=== PATIENT | female | born 1960 | race Caucasian/White ===

== ENCOUNTER 2025-01-04 18:08 | Inpatient (IN) | payer MEDICAID ==
[~2025-01-04] VITALS: Ht 172.7 cm; Wt 85.7 kg
[2025-01-04 23:13] VITALS: BP 116/51; PULSE 66; RESP 20; TEMP 36.3; TEMP 36.3068; O2SAT 96
[2025-01-05] VITALS (7 sets, daily range): BP systolic 112–120; BP diastolic 51–69; PULSE 60–84; RESP 16–20; TEMP 35.8–36.6; O2SAT 96–98
[2025-01-05] MEDS ORDERED: CHOL2000 PO (00:04)
[2025-01-05] MEDS ORDERED: EMPA10TA PO (00:04)
[2025-01-05] MEDS ORDERED: MONT-39 PO (00:04)
[2025-01-05] MEDS ORDERED: METO-539 PO (00:05)
[2025-01-05] MEDS ORDERED: DEXTROSE 50% WATER 50ML SYRINGE IV PRN (02:30)
[2025-01-05] MEDS ORDERED: MIDODRINE HCL 5MG TABLET PO PRN (02:30)
[2025-01-05] MEDS: DEXT 5%/0.9% NACL 1,000 ML IV SCH (03:07)
[2025-01-05] MEDS: MEROPENEM 1G/100ML IV NR (04:05)
[2025-01-05] MEDS: BLOOD SUGAR DIAGNOSTIC STRIP TEST SCH (06:34)
[2025-01-05] MEDS: INSULIN LISPRO 100 UNITS/ML SUBCUT SCH (07:50)
[2025-01-05] MEDS: METHYLPREDNISOLONE SOD SUCC 40MG/ML (ACT-O-VIAL) IV SCH (09:15)
[2025-01-05] MEDS: FUROSEMIDE 40MG/4ML VIAL IVP SCH (09:15)
[2025-01-05] MEDS: CARVEDILOL 12.5MG TABLET PO SCH (09:15)
[2025-01-05] MEDS: PANTOPRAZOLE SODIUM 40 MG/VIAL IV SCH (12:49)
[2025-01-05] MEDS: ALBUTEROL (0.083%) 2.5MG/3ML NEB HHN SCH (15:11)
[2025-01-05 16:39] LABS: HEMATOCRIT. 27.2 % (36.0-48.0); HEMOGLOBIN. 8.5 g/dL (12.0-16.0); MEAN PLATELET VOLUME 9.8 fl (7.4-10.4); PLATELET 108 x1000/uL (130-400); RED BLOOD CELL COUNT 3.16 mill/uL (4.2-5.4); RED CELL DISTRIBUTION WIDTH 15.5 % (11.6-14.6)
[2025-01-05 17:22] LABS: UREA NITROGEN BLOOD 104.0 mg/dL (9-23)
[2025-01-05 17:23] LABS: CREATININE 6.0 mg/dL (0.6-1.0)
[2025-01-05] MEDS: SODIUM ZIRCONIUM CYCLOSILICATE 10GM/PACKET PO SCH (17:38)
[2025-01-05] MEDS: IPRATROPIUM/ALBUTEROL 0.5-3(2.5)MG/3ML NEB HHN SCH (20:56)
[2025-01-05 22:11] LABS: LYMPHOCYTES % MANUAL 6.0 % (20.0-60.0); MONOCYTES % MANUAL 7.0 % (2.0-8.0); NEUTROPHILS % MANUAL 87.0 % (45.0-75.0)
[2025-01-05 22:12] LABS: PLATELET ESTIMATE DECREASED
[2025-01-06] VITALS (16 sets, daily range): BP systolic 98–133; BP diastolic 48–58; PULSE 59–65; RESP 16–20; TEMP 35.9–37.4; O2SAT 95–99
[2025-01-06] MEDS: MEROPENEM 500MG/50ML 50 ML IV SCH (09:21)
[2025-01-06 10:24] LABS: HEMATOCRIT. 26.0 % (36.0-48.0); HEMOGLOBIN. 8.2 g/dL (12.0-16.0); MEAN PLATELET VOLUME 9.6 fl (7.4-10.4); PLATELET 118 x1000/uL (130-400); RED BLOOD CELL COUNT 3.02 mill/uL (4.2-5.4); RED CELL DISTRIBUTION WIDTH 15.6 % (11.6-14.6)
[2025-01-06 10:48] LABS: TRIGLYCERIDE 195.0 mg/dL (0-150)
[2025-01-06 10:49] LABS: LDL CHOLESTEROL 55.0 mg/dL (5-100)
[2025-01-06 10:51] LABS: CREATININE 7.0 mg/dL (0.6-1.0); UREA NITROGEN BLOOD 132.0 mg/dL (9-23)
[2025-01-06 10:54] LABS: T4 FREE 0.63 ng/dL (0.89-1.76)
[2025-01-06 14:22] LABS: BAND% 10.0 % (1.0-6.0); LYMPHOCYTES % MANUAL 6.0 % (20.0-60.0); MONOCYTES % MANUAL 3.0 % (2.0-8.0); NEUTROPHILS % MANUAL 81.0 % (45.0-75.0); PLATELET ESTIMATE DECREASED
[2025-01-06] MEDS: ENOXAPARIN 30MG/0.3ML SYR SUBCUT SCH (21:25)
[2025-01-07] VITALS (9 sets, daily range): BP systolic 98–122; BP diastolic 44–53; PULSE 60–68; RESP 18–20; TEMP 36.3–37.4; O2SAT 96–100
[2025-01-07 00:46] LABS: CREATINE KINASE MB FRACTION 1.1 ng/mL (0.5-3.6)
[2025-01-07 00:51] LABS: TROPONIN I HIGH SENSITIVITY 54 ng/L (3.0-34)
[2025-01-07] MEDS: ACETAMINOPHEN 325MG TABLET PO PRN (04:12)
[2025-01-07 08:33] LABS: CREATINE KINASE MB FRACTION 1.4 ng/mL (0.5-3.6)
[2025-01-07 08:49] LABS: TROPONIN I HIGH SENSITIVITY 58.0 ng/L (3.0-34)
[2025-01-08] VITALS (19 sets, daily range): BP systolic 100–133; BP diastolic 43–70; PULSE 63–89; RESP 16–20; TEMP 36.2–37; O2SAT 96–99
[2025-01-08] MEDS ORDERED: MELATONIN 3MG TABLET PO PRN (03:15)
[2025-01-08] MEDS: NITROGLYCERIN OINT 1GM/INCH UDPKT TD SCH (06:28)
[2025-01-08 13:00] LABS: MEAN PLATELET VOLUME 9.4 fl (7.4-10.4); PLATELET 136 x1000/uL (130-400); RED BLOOD CELL COUNT 2.04 mill/uL (4.2-5.4); RED CELL DISTRIBUTION WIDTH 15.6 % (11.6-14.6)
[2025-01-08 13:12] LABS: HEMATOCRIT. 17.9 % (36.0-48.0); HEMOGLOBIN. 5.6 g/dL (12.0-16.0)
[2025-01-08 13:22] LABS: ASPARTATE AMINOTRANSFERASE 27 IU/L (<34); BILIRUBIN TOTAL 0.5 mg/dL (0.1-1.0); PROTEIN TOTAL 5.1 g/dL (6.0-8.3)
[2025-01-08 13:23] LABS: CREATININE 7.4 mg/dL (0.6-1.0); UREA NITROGEN BLOOD > 150 mg/dL (9-23)
[2025-01-08 13:52] LABS: BAND% 7.0 % (1.0-6.0); LYMPHOCYTES % MANUAL 3.0 % (20.0-60.0); MONOCYTES % MANUAL 2.0 % (2.0-8.0); NEUTROPHILS % MANUAL 88.0 % (45.0-75.0); PLATELET ESTIMATE NORMAL
[2025-01-09] VITALS (17 sets, daily range): BP systolic 118–148; BP diastolic 52–89; PULSE 60–86; RESP 16–22; TEMP 36.2–37.2; O2SAT 96–99
[2025-01-10] VITALS (15 sets, daily range): BP systolic 104–130; BP diastolic 41–79; PULSE 10–91; RESP 18–20; TEMP 36.28068–36.9; O2SAT 96–100
[2025-01-10 08:07] LABS: HEMATOCRIT. 23.6 % (36.0-48.0); HEMOGLOBIN. 7.8 g/dL (12.0-16.0); MEAN PLATELET VOLUME 9.0 fl (7.4-10.4); PLATELET 130 x1000/uL (130-400); RED BLOOD CELL COUNT 2.74 mill/uL (4.2-5.4); RED CELL DISTRIBUTION WIDTH 15.1 % (11.6-14.6)
[2025-01-10 08:09] LABS: UREA NITROGEN BLOOD 97 mg/dL (9-23)
[2025-01-10 08:12] LABS: VITAMIN B12 SERUM 1600 pg/mL (211-911)
[2025-01-10 08:13] LABS: FOLIC ACID (FOLATE) SERUM 8.74 ng/mL (>5.38)
[2025-01-10 09:31] LABS: CREATININE 4.8 mg/dL (0.6-1.0)
[2025-01-10 14:29] LABS: BAND% 9.0 % (1.0-6.0); LYMPHOCYTES % MANUAL 1.0 % (20.0-60.0); MONOCYTES % MANUAL 9.0 % (2.0-8.0); NEUTROPHILS % MANUAL 81.0 % (45.0-75.0); PLATELET ESTIMATE NORMAL
[2025-01-11] VITALS: BP 139/56; PULSE 60; RESP 19; TEMP 36.4; O2SAT 98
[2025-01-11 04:00] VITALS: BP 131/56; PULSE 73; RESP 20; TEMP 36.7; O2SAT 98
[2025-01-11 06:46] LABS: CREATININE 3.8 mg/dL (0.6-1.0)
[2025-01-11 06:47] LABS: UREA NITROGEN BLOOD 66.0 mg/dL (9-23)
[2025-01-11 07:25] LABS: HEPATITIS A AB IGM NEGATIVE (Negative)
[2025-01-11 07:26] LABS: HEPATITIS B CORE AB IGM NEGATIVE (Negative); HEPATITIS C AB NON REACTIVE (Neg) (Negative)
[2025-01-11 08:56] VITALS: BP 127/55; PULSE 67; RESP 18; TEMP 36.5; O2SAT 98
[2025-01-11 12:00] VITALS: BP 127/55; PULSE 67; RESP 18; TEMP 36.5; O2SAT 98
[2025-01-11] MEDS ORDERED: NON FORMULARY MED XX SCH (12:30)
[2025-01-11] MEDS: IRON SUCROSE COMPLEX 100 MG/5 ML ML IV SCH (14:35)
[2025-01-11 16:00] VITALS: BP 120/55; PULSE 64; RESP 17; TEMP 37.1; O2SAT 100
[2025-01-11 20:00] VITALS: BP 130/60; PULSE 72; RESP 19; TEMP 36.4; O2SAT 97
[2025-01-11] MEDS: DEXT 5%/0.45% NACL 1000ML 1,000 ML IV SCH (20:35)
[2025-01-11] MEDS: PANTOPRAZOLE SODIUM 40 MG/VIAL IV SCH (20:59)
[2025-01-11] MEDS: GUAIFENESIN 200MG/10ML SUGAR FREE UDC PO PRN (22:40)
[2025-01-12] VITALS (8 sets, daily range): BP systolic 110–151; BP diastolic 52–66; PULSE 62–77; RESP 18–20; TEMP 36.1–36.9; O2SAT 94–100
[2025-01-12 08:04] LABS: CLARITY URINE CLEAR (CLEAR); COLOR URINE YELLOW (YELLOW); GLUCOSE URINE NEGATIVE (NEGATIVE); KETONES URINE NEGATIVE (NEGATIVE); LEUKOCYTE ESTERASE URINE 2+ (NEGATIVE); NITRITE URINE NEGATIVE (NEGATIVE); OCCULT BLOOD URINE 3+ (NEGATIVE); PH URINE 5.5 (4.5-8.0); PROTEIN URINE 1+ (NEGATIVE); SPECIFIC GRAVITY URINE 1.009 (1.005-1.030); UROBILINOGEN URINE 0.2 E.U./dL (0.2-1.0)
[2025-01-12 08:50] LABS: BACTERIA URINE 1+; RBC URINE TNTC /hpf (0-2); SQUAMOUS EPITHELIAL CELL URINE 1+ /lpf (RARE/1+); YEAST URINE 2+
[2025-01-12 08:51] LABS: HEMATOCRIT. 24.0 % (36.0-48.0); HEMOGLOBIN. 7.9 g/dL (12.0-16.0); MEAN PLATELET VOLUME 8.8 fl (7.4-10.4); PLATELET 164 x1000/uL (130-400); RED BLOOD CELL COUNT 2.78 mill/uL (4.2-5.4); RED CELL DISTRIBUTION WIDTH 14.9 % (11.6-14.6)
[2025-01-12 09:06] LABS: CREATININE 4.8 mg/dL (0.6-1.0)
[2025-01-12 09:07] LABS: UREA NITROGEN BLOOD 91.0 mg/dL (9-23)
[2025-01-12 09:12] LABS: COMPLEMENT C3 81 mg/dL (82-167); COMPLEMENT C4 23 mg/dL (12-38)
[2025-01-12 10:08] LABS: BAND% 9.0 % (1.0-6.0); LYMPHOCYTES % MANUAL 7.0 % (20.0-60.0); MONOCYTES % MANUAL 8.0 % (2.0-8.0); NEUTROPHILS % MANUAL 76.0 % (45.0-75.0); PLATELET ESTIMATE NORMAL
[2025-01-12 11:41] LABS: INR 1.0
[2025-01-12 13:08] LABS: ANTI-NUCLEAR ANTIBODIES DIRECT Positive (Negative)
[2025-01-12] MEDS ORDERED: DEXAMETHASONE 4MG/ML 1ML VIAL ONE (16:02)
[2025-01-12] MEDS ORDERED: ONDANSETRON HCL 4MG/2ML INJ ONE (16:02)
[2025-01-12] MEDS ORDERED: FENTANYL CITRATE/PF 50MCG/ML 2ML VIAL ONE (16:03)
[2025-01-12] MEDS ORDERED: PROPOFOL 200MG/20ML VIAL IV ONE (16:03)
[2025-01-12] MEDS ORDERED: IOHEXOL-300 100 ML BOTTLE ONE (17:19)
[2025-01-12] MEDS ORDERED: FAMOTIDINE 20MG/2ML VIAL IV ONE (18:28)
[2025-01-12] MEDS: SODIUM CHLORIDE 0.45% 1,000 ML IV SCH (20:11)
[2025-01-13] VITALS: BP 115/60; PULSE 63; RESP 18; TEMP 36.4; O2SAT 99
[2025-01-13 04:00] VITALS: BP 124/50; PULSE 69; RESP 18; TEMP 36.5; O2SAT 100
[2025-01-13 08:00] VITALS: BP 118/59; PULSE 75; RESP 18; TEMP 36.2; O2SAT 99
[2025-01-13 10:37] LABS: PLATELET 186 x1000/uL (130-400); RED BLOOD CELL COUNT 2.61 mill/uL (4.2-5.4); RED CELL DISTRIBUTION WIDTH 14.5 % (11.6-14.6)
[2025-01-13 10:51] LABS: CREATININE 4.4 mg/dL (0.6-1.0); UREA NITROGEN BLOOD 95.0 mg/dL (9-23)
[2025-01-13 12:00] VITALS: BP 129/54; PULSE 74; RESP 18; TEMP 36.6; O2SAT 99
[2025-01-13] MEDS: MICAFUNGIN 100 MG in SODIUM CHLORIDE 0.9% 100 ML IV SCH (14:36)
[2025-01-13 16:00] VITALS: BP 134/57; PULSE 66; RESP 18; TEMP 36.6; O2SAT 100
[2025-01-13 20:00] VITALS: BP 128/61; PULSE 72; RESP 18; TEMP 36.1; O2SAT 98
[2025-01-14] VITALS: BP 108/52; PULSE 75; RESP 19; TEMP 36; O2SAT 97
[2025-01-14 04:00] VITALS: BP 124/65; PULSE 80; RESP 19; TEMP 36.2; O2SAT 98
[2025-01-14 08:00] VITALS: BP 122/63; PULSE 79; RESP 17; TEMP 36.5; O2SAT 97
[2025-01-14 10:58] LABS: CREATININE 4.3 mg/dL (0.6-1.0); UREA NITROGEN BLOOD 100.0 mg/dL (9-23)
[2025-01-14 12:00] VITALS: BP 132/57; PULSE 82; RESP 18; TEMP 36.4; O2SAT 99
[2025-01-14 16:00] VITALS: BP 131/59; PULSE 67; RESP 16; RESP 20; TEMP 36.3; O2SAT 100
[2025-01-14 19:09] LABS: ANTI-MYELOPEROXIDASE AB > 8.0 units (0.0-0.9); ANTI-PROTEINASE 3 ABS < 0.2 units (0.0-0.9)
[2025-01-14 20:00] VITALS: BP 132/58; PULSE 78; RESP 19; TEMP 37.1; O2SAT 96
[2025-01-14] MEDS: SODIUM CHLORIDE 0.45% 1,000 ML IV SCH (20:46)
[2025-01-15] VITALS: BP 124/55; PULSE 74; RESP 18; TEMP 36.6; O2SAT 96
[2025-01-15 04:00] VITALS: BP 126/75; PULSE 84; RESP 19; TEMP 36.7; O2SAT 96
[2025-01-15 07:08] LABS: BASOPHILS % 0.1 % (0.0-2.0); EOSINOPHILS % 0.3 % (0.0-5.0); LYMPHOCYTES % 8.7 % (20.0-50.0); MEAN PLATELET VOLUME 8.1 fl (7.4-10.4); MONOCYTES % 8.2 % (2.0-8.0); NEUTROPHILS % 82.7 % (40.0-76.0); PLATELET 178 x1000/uL (130-400); RED BLOOD CELL COUNT 2.24 mill/uL (4.2-5.4); RED CELL DISTRIBUTION WIDTH 15.1 % (11.6-14.6)
[2025-01-15 07:21] LABS: CREATININE 3.9 mg/dL (0.6-1.0)
[2025-01-15 07:23] LABS: PHOSPHORUS 7.7 mg/dL (2.5-4.9)
[2025-01-15 07:40] LABS: HEMATOCRIT. 19.5 % (36.0-48.0); HEMOGLOBIN. 6.4 g/dL (12.0-16.0)
[2025-01-15 07:46] LABS: UREA NITROGEN BLOOD 116 mg/dL (9-23)
[2025-01-15 07:57] VITALS: BP 142/64; PULSE 90; RESP 20; TEMP 36.4; O2SAT 92
[2025-01-15 12:11] VITALS: BP 151/67; PULSE 85; RESP 18; TEMP 36.4; O2SAT 92
[2025-01-15 15:58] VITALS: BP 131/71; PULSE 83; RESP 19; TEMP 36.6; O2SAT 94
[2025-01-15] MEDS: MAGNESIUM 2 G PREMIX 50 ML IV SCH (19:05)
[2025-01-15 20:00] VITALS: BP 137/66; PULSE 81; RESP 18; TEMP 36.5; O2SAT 96
[2025-01-16] VITALS (15 sets, daily range): BP systolic 116–159; BP diastolic 58–73; PULSE 67–89; RESP 18–20; TEMP 36.28068–37.2; O2SAT 94–97
[2025-01-16 08:32] LABS: CREATININE 3.7 mg/dL (0.6-1.0)
[2025-01-16 08:57] LABS: UREA NITROGEN BLOOD 122.0 mg/dL (9-23)
[2025-01-16 11:59] LABS: PLATELET 173 x1000/uL (130-400); RED BLOOD CELL COUNT 2.18 mill/uL (4.2-5.4); RED CELL DISTRIBUTION WIDTH 14.9 % (11.6-14.6)
[2025-01-16] MEDS: DEXTROSE 5% WATER 1,000 ML IV SCH (18:31)
[2025-01-16] MEDS: AMLODIPINE 5MG TABLET PO SCH (18:32)
[2025-01-17] VITALS (8 sets, daily range): BP systolic 113–157; BP diastolic 56–75; PULSE 72–112; RESP 16–25; TEMP 36.2–36.7; O2SAT 94–99
[2025-01-17 02:14] LABS: CREATININE 3.4 mg/dL (0.6-1.0)
[2025-01-17 02:15] LABS: BASOPHILS % 0.0 % (0.0-2.0); EOSINOPHILS % 0.0 % (0.0-5.0); HEMATOCRIT. 26.3 % (36.0-48.0); HEMOGLOBIN. 8.8 g/dL (12.0-16.0); LYMPHOCYTES % 8.5 % (20.0-50.0); MEAN PLATELET VOLUME 8.4 fl (7.4-10.4); MONOCYTES % 7.1 % (2.0-8.0); NEUTROPHILS % 84.4 % (40.0-76.0); PLATELET 155 x1000/uL (130-400); RED BLOOD CELL COUNT 3.02 mill/uL (4.2-5.4); RED CELL DISTRIBUTION WIDTH 14.3 % (11.6-14.6)
[2025-01-17 02:19] LABS: UREA NITROGEN BLOOD 122 mg/dL (9-23)
[2025-01-17 02:22] LABS: INR 1.0
[2025-01-17] MEDS: PANTOPRAZOLE SODIUM 40 MG/VIAL IV SCH (07:20)
[2025-01-17 09:49] LABS: BASOPHILS % 0.1 % (0.0-2.0); EOSINOPHILS % 0.8 % (0.0-5.0); HEMATOCRIT. 24.6 % (36.0-48.0); HEMOGLOBIN. 8.2 g/dL (12.0-16.0); LYMPHOCYTES % 10.5 % (20.0-50.0); MEAN PLATELET VOLUME 8.5 fl (7.4-10.4); MONOCYTES % 8.9 % (2.0-8.0); NEUTROPHILS % 79.7 % (40.0-76.0); PLATELET 139 x1000/uL (130-400); RED BLOOD CELL COUNT 2.80 mill/uL (4.2-5.4); RED CELL DISTRIBUTION WIDTH 14.3 % (11.6-14.6)
[2025-01-17 10:10] LABS: CREATININE 3.0 mg/dL (0.6-1.0)
[2025-01-17 10:11] LABS: UREA NITROGEN BLOOD 87 mg/dL (9-23)
[2025-01-17] MEDS: POTASSIUM CHLORIDE 20MEQ TABLET SR PO SCH (11:10)
[2025-01-17] MEDS ORDERED: HYDROMORPHONE HCL/PF 1MG/ML INJ IV PRN (12:00)
[2025-01-17] MEDS ORDERED: ONDANSETRON HCL 4MG/2ML INJ IV PRN (12:00)
[2025-01-17] MEDS ORDERED: ACETAMINOPHEN 1,000MG/100ML PREMIX IV PRN (12:00)
[2025-01-17] MEDS ORDERED: FAMOTIDINE 20MG/2ML VIAL IV PRN (12:00)
[2025-01-17] MEDS ORDERED: HYDRALAZINE 20MG/ML VIAL IV PRN ×2 (12:00)
[2025-01-17] MEDS ORDERED: MEPERIDINE HCL/PF 25MG/ML CPJ IV PRN (12:00)
[2025-01-17] MEDS ORDERED: LABETALOL 5MG/ML 4ML INJ IV PRN (12:00)
[2025-01-17 12:24] LABS: INR 1.0
[2025-01-17] MEDS ORDERED: BACITRACIN 14GM TUBE TOP ONE (12:30)
[2025-01-17] MEDS ORDERED: IOHEXOL-300 50 ML BOTTLE IV ONE (13:47)
[2025-01-17 15:07] LABS: ATYPICAL P-ANCA <1:20 titer (Neg:<1:20); CYTOPLASMIC C-ANCA <1:20 titer (Neg:<1:20); PERINUCLEAR P-ANCA 1:40 titer (Neg:<1:20)
[2025-01-17] MEDS: MAGNESIUM 1 G PREMIX 100 ML IV NR (15:16)
[2025-01-17 17:55] LABS: CREATININE 3.1 mg/dL (0.6-1.0); UREA NITROGEN BLOOD 96.0 mg/dL (9-23)
[2025-01-18] VITALS (103 sets, daily range): BP systolic 40–173; BP diastolic 31–117; PULSE 60–119; RESP 10–37; TEMP 36.7–36.9; O2SAT 76–100
[2025-01-18] MEDS ORDERED: LEVETIRACETAM 1,500MG in NACL 100ML PREMIX IV SCH
[2025-01-18] MEDS ORDERED: POTASSIUM CHLORIDE 40 MEQ in DEXT 5% WATER 230 ML IV ONE
[2025-01-18 00:51] LABS: BG BASE EXCESS 3.1 mmol/L (-2.0-3.0); BG CARBOXYHEMOGLOBIN 0.6 % (0.5-1.5); BG DEOXYHEMOGLOBIN 0.2 % (0.0-5.0); BG FRACTION INSPIRED OXYGEN 100; BG HCO3 ACT 28.9 mmol/L (21.0-28.0); BG METHEMOGLOBIN 0.3 % (0.5-1.5); BG OXYGEN SATURATION 99.8 % (94.0-98.0); BG OXYHEMOGLOBIN 98.9 % (94.0-98.0); BG PCO2 49.9 mmHg (32.0-45.0); BG PEEP (cmH2O) 5.0 cmH2O; BG PH 7.381 (7.350-7.450); BG PIP 40.0 cmH2O; BG PO2 564.7 mmHg (83.0-108.0); BG SAMPLE SITE RIGHT BRACHIAL; BG TOTAL HEMOGLOBIN 10.6 g/dL (12.0-16.0); BG TOTAL RESPIRATORY RATE 24 b/min; BG VENT MODE VENT - P/C; BG VENT RATE 20.0 set
[2025-01-18] MEDS: IPRATROPIUM/ALBUTEROL 0.5-3(2.5)MG/3ML NEB HHN PRN (00:56)
[2025-01-18] MEDS: PROPOFOL 10MG/ML 100ML 100 ML IV PRN (01:10)
[2025-01-18] MEDS: LEVETIRACETAM 1500MG PREMIX 100 ML IV SCH (01:11)
[2025-01-18] MEDS: FENTANYL 2500MCG/250ML PMX 250 ML IV PRN (01:11)
[2025-01-18] MEDS: KCL 20MEQ/100ML X 2 FOR TOTAL KCL 40MEQ/200ML IV SCH (01:40)
[2025-01-18] MEDS: NOREPINEPHRINE 8MG/250ML PMX 250 ML IV PRN (02:17)
[2025-01-18 05:42] LABS: BASOPHILS % 0.1 % (0.0-2.0); EOSINOPHILS % 0.0 % (0.0-5.0); HEMATOCRIT. 31.0 % (36.0-48.0); HEMOGLOBIN. 10.2 g/dL (12.0-16.0); LYMPHOCYTES % 7.4 % (20.0-50.0); MEAN PLATELET VOLUME 8.6 fl (7.4-10.4); MONOCYTES % 9.0 % (2.0-8.0); NEUTROPHILS % 83.5 % (40.0-76.0); PLATELET 156 x1000/uL (130-400); RED BLOOD CELL COUNT 3.49 mill/uL (4.2-5.4); RED CELL DISTRIBUTION WIDTH 14.6 % (11.6-14.6)
[2025-01-18 09:18] LABS: BG BASE EXCESS 2.7 mmol/L (-2.0-3.0); BG CARBOXYHEMOGLOBIN 1.1 % (0.5-1.5); BG DEOXYHEMOGLOBIN 1.0 % (0.0-5.0); BG FRACTION INSPIRED OXYGEN 40; BG HCO3 ACT 25.4 mmol/L (21.0-28.0); BG METHEMOGLOBIN 0.1 % (0.5-1.5); BG OXYGEN SATURATION 99.0 % (94.0-98.0); BG OXYHEMOGLOBIN 97.8 % (94.0-98.0); BG PCO2 32.1 mmHg (32.0-45.0); BG PH 7.516 (7.350-7.450); BG PIP 30.0 cmH2O; BG PO2 136.1 mmHg (83.0-108.0); BG SAMPLE SITE RIGHT BRACHIAL; BG TOTAL HEMOGLOBIN 9.7 g/dL (12.0-16.0); BG VENT MODE VENT - P/C; BG VENT RATE 20.0 set
[2025-01-18] MEDS: PIPERACILLIN/TAZO 3.375G/50ML 50 ML IV SCH (10:11)
[2025-01-18] MEDS: VANCOMYCIN 1.25GM/250ML 250 ML IV NR (10:12)
[2025-01-18] MEDS: INSULIN LISPRO 100 UNITS/ML SUBCUT SCH (17:33)
[2025-01-18] MEDS: LEVETIRACETAM 500MG PREMIX 100 ML IV SCH (21:39)
[2025-01-18 23:36] LABS: CREATININE 2.7 mg/dL (0.6-1.0); UREA NITROGEN BLOOD 92 mg/dL (9-23)
[2025-01-18 23:38] LABS: PHOSPHORUS 5.2 mg/dL (2.5-4.9)
[2025-01-19] VITALS (103 sets, daily range): BP systolic 75–159; BP diastolic 51–104; PULSE 60–91; RESP 12–23; TEMP 36.4–36.8; O2SAT 95–100
[2025-01-19] MEDS: MAGNESIUM 4 G PREMIX 100 ML IV NR (00:34)
[2025-01-19] MEDS: KCL 20MEQ/100ML PREMIX 100 ML IV SCH (04:39)
[2025-01-19 07:20] LABS: BASOPHILS % 0.2 % (0.0-2.0); EOSINOPHILS % 0.8 % (0.0-5.0); HEMATOCRIT. 26.5 % (36.0-48.0); HEMOGLOBIN. 8.9 g/dL (12.0-16.0); LYMPHOCYTES % 8.7 % (20.0-50.0); MEAN PLATELET VOLUME 9.4 fl (7.4-10.4); MONOCYTES % 5.3 % (2.0-8.0); NEUTROPHILS % 85.0 % (40.0-76.0); PLATELET 85 x1000/uL (130-400); RED BLOOD CELL COUNT 2.99 mill/uL (4.2-5.4); RED CELL DISTRIBUTION WIDTH 14.6 % (11.6-14.6)
[2025-01-19 07:29] LABS: CREATININE 2.7 mg/dL (0.6-1.0)
[2025-01-19 07:30] LABS: TRIGLYCERIDE 213 mg/dL (0-150); UREA NITROGEN BLOOD 73 mg/dL (9-23)
[2025-01-19 07:32] LABS: PHOSPHORUS 5.2 mg/dL (2.5-4.9)
[2025-01-19 12:39] LABS: CREATININE 2.8 mg/dL (0.6-1.0); UREA NITROGEN BLOOD 66 mg/dL (9-23)
[2025-01-19] MEDS: DEXT 5%/0.45% NACL KCL 10MEQ/L 1,000 ML IV SCH (18:39)
[2025-01-19 19:13] LABS: BG BASE EXCESS 5.7 mmol/L (-2.0-3.0); BG CARBOXYHEMOGLOBIN 0.1 % (0.5-1.5); BG DEOXYHEMOGLOBIN 2.8 % (0.0-5.0); BG FRACTION INSPIRED OXYGEN 30; BG HCO3 ACT 30.3 mmol/L (21.0-28.0); BG METHEMOGLOBIN 0.3 % (0.5-1.5); BG OXYGEN SATURATION 97.2 % (94.0-98.0); BG OXYHEMOGLOBIN 96.8 % (94.0-98.0); BG PCO2 44.7 mmHg (32.0-45.0); BG PEEP (cmH2O) 5.0 cmH2O; BG PH 7.449 (7.350-7.450); BG PO2 97.7 mmHg (83.0-108.0); BG SAMPLE SITE RIGHT BRACHIAL; BG TOTAL HEMOGLOBIN 10.2 g/dL (12.0-16.0); BG VENT MODE VENT - CPAP
[2025-01-20] VITALS (81 sets, daily range): BP systolic 92–176; BP diastolic 53–119; PULSE 60–107; RESP 13–25; TEMP 35.6–36.7; O2SAT 95–100
[2025-01-20 05:31] LABS: HEMATOCRIT. 25.1 % (36.0-48.0); HEMOGLOBIN. 8.3 g/dL (12.0-16.0); MEAN PLATELET VOLUME 9.4 fl (7.4-10.4); PLATELET 71 x1000/uL (130-400); RED BLOOD CELL COUNT 2.82 mill/uL (4.2-5.4); RED CELL DISTRIBUTION WIDTH 14.4 % (11.6-14.6)
[2025-01-20 05:47] LABS: CREATININE 2.9 mg/dL (0.6-1.0); UREA NITROGEN BLOOD 73 mg/dL (9-23)
[2025-01-20 05:50] LABS: PHOSPHORUS 6.6 mg/dL (2.5-4.9)
[2025-01-20] MEDS: POTASSIUM CHLORIDE 20MEQ TABLET SR PO NR (07:00)
[2025-01-20 09:51] LABS: BAND% 12.0 % (1.0-6.0); LYMPHOCYTES % MANUAL 3.0 % (20.0-60.0); MONOCYTES % MANUAL 4.0 % (2.0-8.0); NEUTROPHILS % MANUAL 81.0 % (45.0-75.0)
[2025-01-20 09:53] LABS: PLATELET ESTIMATE DECREASED
[2025-01-20] MEDS: DEXT 5% WATER + KCL 20MEQ/L 1,000 ML IV SCH (20:39)
[2025-01-21] VITALS (15 sets, daily range): BP systolic 109–137; BP diastolic 54–83; PULSE 66–95; RESP 15–23; TEMP 36.4–36.8; O2SAT 90–99
[2025-01-21 10:15] LABS: PLATELET 87 x1000/uL (130-400); RED BLOOD CELL COUNT 2.99 mill/uL (4.2-5.4); RED CELL DISTRIBUTION WIDTH 14.6 % (11.6-14.6)
[2025-01-21 10:34] LABS: CREATININE 3.0 mg/dL (0.6-1.0); UREA NITROGEN BLOOD 68.0 mg/dL (9-23)
[2025-01-21] MEDS: ALPRAZOLAM 0.25 MG TABLET PO SCH (12:43)
[2025-01-21] MEDS: POTASSIUM CHLORIDE 20MEQ TABLET SR PO SCH (14:17)
[2025-01-21 22:14] LABS: CREATININE 3.1 mg/dL (0.6-1.0)
[2025-01-21 22:15] LABS: UREA NITROGEN BLOOD 70 mg/dL (9-23)
[2025-01-22] VITALS (7 sets, daily range): BP systolic 99–172; BP diastolic 56–77; PULSE 76–105; RESP 17–26; TEMP 35.6–37; O2SAT 94–99
[2025-01-22 06:50] LABS: PLATELET 98 x1000/uL (130-400); RED BLOOD CELL COUNT 2.89 mill/uL (4.2-5.4); RED CELL DISTRIBUTION WIDTH 14.3 % (11.6-14.6)
[2025-01-22 07:03] LABS: CREATININE 3.0 mg/dL (0.6-1.0); UREA NITROGEN BLOOD 68.0 mg/dL (9-23)
[2025-01-22] MEDS: FUROSEMIDE 20MG/2ML VIAL IVP SCH (09:36)
[2025-01-22] MEDS: LORAZEPAM 0.5MG TABLET PO SCH (11:21)
[2025-01-22] MEDS: ASCORBIC ACID 500 MG TABLET PO SCH (13:13)
[2025-01-22] MEDS: FERROUS SULFATE 325MG TABLET PO SCH (13:13)
[2025-01-22] MEDS ORDERED: GUAIFENESIN/DM 600MG/30MG ER TAB 12HR PO PRN (16:30)
[2025-01-23] VITALS (13 sets, daily range): BP systolic 105–176; BP diastolic 65–92; PULSE 94–109; RESP 18–34; TEMP 36.4–36.8; O2SAT 94–99
[2025-01-23 07:03] LABS: HEMATOCRIT. 24.1 % (36.0-48.0); HEMOGLOBIN. 8.0 g/dL (12.0-16.0); MEAN PLATELET VOLUME 8.6 fl (7.4-10.4); PLATELET 98 x1000/uL (130-400); RED BLOOD CELL COUNT 2.71 mill/uL (4.2-5.4); RED CELL DISTRIBUTION WIDTH 13.8 % (11.6-14.6)
[2025-01-23 07:10] LABS: CREATININE 2.8 mg/dL (0.6-1.0)
[2025-01-23 07:11] LABS: UREA NITROGEN BLOOD 62 mg/dL (9-23)
[2025-01-23 07:13] LABS: PHOSPHORUS 5.6 mg/dL (2.5-4.9)
[2025-01-23] MEDS ORDERED: LIDOCAINE HCL 1% 10 MG/ML 10ML VIAL ONE (08:35)
[2025-01-23] MEDS ORDERED: IOHEXOL-300 100 ML BOTTLE ONE (08:35)
[2025-01-23] MEDS ORDERED: ACETAMINOPHEN 325MG TABLET PO PRN (10:00)
[2025-01-23] MEDS ORDERED: GUAIFENESIN/DM 600MG/30MG ER TAB 12HR PO PRN (10:15)
[2025-01-23] MEDS ORDERED: GUAIFENESIN 600MG ER TABLET PO SCH (10:30)
[2025-01-23] MEDS: IPRATROPIUM/ALBUTEROL 0.5-3(2.5)MG/3ML NEB HHN SCH ×2 (10:35→15:13)
[2025-01-23] MEDS: BUDESONIDE 0.5MG/2ML NEB HHN SCH (10:35)
[2025-01-23] MEDS ORDERED: ALPRAZOLAM 0.25 MG TABLET PO PRN (11:45)
[2025-01-23] MEDS ORDERED: IPRATROPIUM/ALBUTEROL 0.5-3(2.5)MG/3ML NEB HHN SCH (12:00)
[2025-01-23] MEDS: MAGNESIUM 2 G PREMIX 50 ML IV NR (12:04)
[2025-01-23 12:31] LABS: BG BASE EXCESS 4.0 mmol/L (-2.0-3.0); BG CARBOXYHEMOGLOBIN 1.2 % (0.5-1.5); BG DEOXYHEMOGLOBIN 0.1 % (0.0-5.0); BG FLOW(L/min) 15.00 L/min; BG FRACTION INSPIRED OXYGEN 100; BG HCO3 ACT 32.6 mmol/L (21.0-28.0); BG METHEMOGLOBIN 0.3 % (0.5-1.5); BG OXYGEN SATURATION 99.9 % (94.0-98.0); BG OXYHEMOGLOBIN 98.4 % (94.0-98.0); BG PCO2 77.3 mmHg (32.0-45.0); BG PH 7.243 (7.350-7.450); BG PO2 306.5 mmHg (83.0-108.0); BG SAMPLE SITE LEFT RADIAL; BG TOTAL HEMOGLOBIN 9.1 g/dL (12.0-16.0); BG VENT MODE MASK - NRB
[2025-01-23] MEDS: GUAIFENESIN-DM 200MG-20MG/10ML UDC PO SCH (13:15)
[2025-01-23] MEDS: SODIUM CHLORIDE 3% FOR INH 15ML NEB INH NR (15:13)
[2025-01-23] MEDS: ACETYLCYSTEINE 200MG/ML 20% VIAL 4ML INH SCH (15:13)
[2025-01-23 16:23] LABS: BG BASE EXCESS 3.5 mmol/L (-2.0-3.0); BG CARBOXYHEMOGLOBIN 0.5 % (0.5-1.5); BG DEOXYHEMOGLOBIN 4.1 % (0.0-5.0); BG FRACTION INSPIRED OXYGEN 35; BG HCO3 ACT 32.9 mmol/L (21.0-28.0); BG METHEMOGLOBIN 0.1 % (0.5-1.5); BG OXYGEN SATURATION 95.9 % (94.0-98.0); BG OXYHEMOGLOBIN 95.3 % (94.0-98.0); BG PCO2 83.8 mmHg (32.0-45.0); BG PH 7.212 (7.350-7.450); BG PO2 85.7 mmHg (83.0-108.0); BG SAMPLE SITE LEFT RADIAL; BG TOTAL HEMOGLOBIN 9.7 g/dL (12.0-16.0); BG VENT MODE MASK - BIPAP; BG VENT RATE 20.0 set
[2025-01-23] MEDS: FUROSEMIDE 20MG/2ML VIAL IVP NR ×2 (16:40→19:01)
[2025-01-23] MEDS ORDERED: METHYLPREDNISOLONE SOD SUCC 40MG/ML (ACT-O-VIAL) IV SCH (17:00)
[2025-01-23] MEDS: ALPRAZOLAM 0.25 MG TABLET PO SCH (17:01)
[2025-01-23] MEDS ORDERED: HYDROXYZINE 25MG TABLET PO PRN (18:00)
[2025-01-23] MEDS: POTASSIUM CHLORIDE 20MEQ TABLET SR PO NR (19:01)
[2025-01-23] MEDS: FERROUS SULFATE 325MG TABLET PO SCH (19:04)
[2025-01-23 19:10] LABS: BG BASE EXCESS 2.0 mmol/L (-2.0-3.0); BG CARBOXYHEMOGLOBIN 1.4 % (0.5-1.5); BG DEOXYHEMOGLOBIN 3.7 % (0.0-5.0); BG FRACTION INSPIRED OXYGEN 35; BG HCO3 ACT 29.4 mmol/L (21.0-28.0); BG METHEMOGLOBIN 0.1 % (0.5-1.5); BG OXYGEN SATURATION 96.2 % (94.0-98.0); BG OXYHEMOGLOBIN 94.8 % (94.0-98.0); BG PCO2 63.3 mmHg (32.0-45.0); BG PH 7.285 (7.350-7.450); BG PO2 83.5 mmHg (83.0-108.0); BG SAMPLE SITE LEFT RADIAL; BG TOTAL HEMOGLOBIN 8.9 g/dL (12.0-16.0); BG VENT MODE MASK - BIPAP; BG VENT RATE 28.0 set
[2025-01-23] MEDS: METHYLPREDNISOLONE SOD SUCC 40MG/ML (ACT-O-VIAL) IV SCH (20:47)
[2025-01-23 21:54] LABS: BAND% 3.0 % (1.0-6.0); LYMPHOCYTES % MANUAL 9.0 % (20.0-60.0); MONOCYTES % MANUAL 9.0 % (2.0-8.0); NEUTROPHILS % MANUAL 79.0 % (45.0-75.0); PLATELET ESTIMATE DECREASED
[2025-01-24] VITALS (16 sets, daily range): BP systolic 91–158; BP diastolic 58–83; PULSE 76–101; RESP 18–34; TEMP 35.6–36.5; O2SAT 96–100
[2025-01-24] MEDS: MAGNESIUM HYDROXIDE 400MG/5ML 30ML UDC PO PRN (00:06)
[2025-01-24 06:53] LABS: CREATININE 2.8 mg/dL (0.6-1.0); UREA NITROGEN BLOOD 63 mg/dL (9-23)
[2025-01-24 10:08] LABS: BG BASE EXCESS 3.9 mmol/L (-2.0-3.0); BG CARBOXYHEMOGLOBIN 0.2 % (0.5-1.5); BG DEOXYHEMOGLOBIN 2.5 % (0.0-5.0); BG FRACTION INSPIRED OXYGEN 35; BG HCO3 ACT 31.4 mmol/L (21.0-28.0); BG METHEMOGLOBIN 0.1 % (0.5-1.5); BG OXYGEN SATURATION 97.5 % (94.0-98.0); BG OXYHEMOGLOBIN 97.2 % (94.0-98.0); BG PCO2 65.5 mmHg (32.0-45.0); BG PH 7.299 (7.350-7.450); BG PO2 99.7 mmHg (83.0-108.0); BG SAMPLE SITE RIGHT RADIAL; BG TOTAL HEMOGLOBIN 9.6 g/dL (12.0-16.0); BG VENT MODE MASK - BIPAP; BG VENT RATE 28.0 set
[2025-01-24] MEDS: MONTELUKAST SODIUM 10MG TABLET PO SCH (10:45)
[2025-01-24] MEDS: THEOPHYLLINE ANHYDROUS 80MG/15ML ORAL SYR PO SCH (14:15)
[2025-01-24 15:26] LABS: BG BASE EXCESS 2.8 mmol/L (-2.0-3.0); BG CARBOXYHEMOGLOBIN 0.9 % (0.5-1.5); BG DEOXYHEMOGLOBIN 2.3 % (0.0-5.0); BG FRACTION INSPIRED OXYGEN 30; BG HCO3 ACT 29.3 mmol/L (21.0-28.0); BG METHEMOGLOBIN 0.1 % (0.5-1.5); BG OXYGEN SATURATION 97.7 % (94.0-98.0); BG OXYHEMOGLOBIN 96.7 % (94.0-98.0); BG PCO2 56.8 mmHg (32.0-45.0); BG PH 7.331 (7.350-7.450); BG PO2 92.6 mmHg (83.0-108.0); BG SAMPLE SITE RIGHT RADIAL; BG TOTAL HEMOGLOBIN 8.8 g/dL (12.0-16.0); BG VENT MODE MASK - BIPAP; BG VENT RATE 28.0 set
[2025-01-24] MEDS ORDERED: LOPERAMIDE 2MG/15ML UDC PO PRN (17:45)
[2025-01-24] MEDS: DEXT 5%/0.45% NACL KCL 10MEQ/L 1,000 ML IV SCH (22:47)
[2025-01-25] VITALS (17 sets, daily range): BP systolic 120–165; BP diastolic 60–89; PULSE 78–113; RESP 17–28; TEMP 35.9–36.5; O2SAT 97–100
[2025-01-25 08:50] LABS: HEMATOCRIT. 24.1 % (36.0-48.0); HEMOGLOBIN. 8.2 g/dL (12.0-16.0); MEAN PLATELET VOLUME 8.8 fl (7.4-10.4); PLATELET 148 x1000/uL (130-400); RED BLOOD CELL COUNT 2.75 mill/uL (4.2-5.4); RED CELL DISTRIBUTION WIDTH 13.7 % (11.6-14.6)
[2025-01-25 08:57] LABS: CREATININE 2.7 mg/dL (0.6-1.0); UREA NITROGEN BLOOD 57.0 mg/dL (9-23)
[2025-01-25 09:49] LABS: BG BASE EXCESS 2.2 mmol/L (-2.0-3.0); BG CARBOXYHEMOGLOBIN 1.3 % (0.5-1.5); BG DEOXYHEMOGLOBIN 1.5 % (0.0-5.0); BG FLOW(L/min) 4.00 L/min; BG FRACTION INSPIRED OXYGEN 36; BG HCO3 ACT 28.8 mmol/L (21.0-28.0); BG METHEMOGLOBIN 0.3 % (0.5-1.5); BG OXYGEN SATURATION 98.5 % (94.0-98.0); BG OXYHEMOGLOBIN 96.9 % (94.0-98.0); BG PCO2 56.2 mmHg (32.0-45.0); BG PH 7.327 (7.350-7.450); BG PO2 116.2 mmHg (83.0-108.0); BG SAMPLE SITE RIGHT RADIAL; BG TOTAL HEMOGLOBIN 8.9 g/dL (12.0-16.0); BG VENT MODE NASAL CANNULA
[2025-01-25 19:55] LABS: LYMPHOCYTES % MANUAL 7.0 % (20.0-60.0); MONOCYTES % MANUAL 3.0 % (2.0-8.0); NEUTROPHILS % MANUAL 90.0 % (45.0-75.0); PLATELET ESTIMATE NORMAL
[2025-01-26] VITALS (24 sets, daily range): BP systolic 115–171; BP diastolic 60–114; PULSE 72–112; RESP 17–25; TEMP 35.9–36.7; O2SAT 93–100
[2025-01-26] MEDS: METHYLPREDNISOLONE SOD SUCC 125MG/2ML (ACT-O-VIAL) IV SCH ×2 (05:19→23:34)
[2025-01-26 08:33] LABS: BG BASE EXCESS 5.1 mmol/L (-2.0-3.0); BG CARBOXYHEMOGLOBIN 1.4 % (0.5-1.5); BG DEOXYHEMOGLOBIN 1.8 % (0.0-5.0); BG FLOW(L/min) 2.50 L/min; BG FRACTION INSPIRED OXYGEN 30; BG HCO3 ACT 33.8 mmol/L (21.0-28.0); BG METHEMOGLOBIN 0.1 % (0.5-1.5); BG OXYGEN SATURATION 98.2 % (94.0-98.0); BG OXYHEMOGLOBIN 96.7 % (94.0-98.0); BG PCO2 81.8 mmHg (32.0-45.0); BG PH 7.234 (7.350-7.450); BG PO2 110.6 mmHg (83.0-108.0); BG SAMPLE SITE RIGHT RADIAL; BG TOTAL HEMOGLOBIN 8.1 g/dL (12.0-16.0); BG VENT MODE NASAL CANNULA
[2025-01-26 12:31] LABS: CREATININE 2.6 mg/dL (0.6-1.0); UREA NITROGEN BLOOD 49 mg/dL (9-23)
[2025-01-26 12:33] LABS: PHOSPHORUS 6.8 mg/dL (2.5-4.9)
[2025-01-26 15:27] LABS: BG BASE EXCESS 1.1 mmol/L (-2.0-3.0); BG CARBOXYHEMOGLOBIN 0.8 % (0.5-1.5); BG DEOXYHEMOGLOBIN 6.1 % (0.0-5.0); BG FRACTION INSPIRED OXYGEN 32; BG HCO3 ACT 30.1 mmol/L (21.0-28.0); BG METHEMOGLOBIN 0.3 % (0.5-1.5); BG OXYGEN SATURATION 93.8 % (94.0-98.0); BG OXYHEMOGLOBIN 92.8 % (94.0-98.0); BG PCO2 73.4 mmHg (32.0-45.0); BG PH 7.231 (7.350-7.450); BG PO2 72.2 mmHg (83.0-108.0); BG SAMPLE SITE RIGHT RADIAL; BG TOTAL HEMOGLOBIN 11.2 g/dL (12.0-16.0); BG VENT MODE NASAL CANNULA
[2025-01-26 19:13] LABS: HEMATOCRIT. 25.0 % (36.0-48.0); HEMOGLOBIN. 8.3 g/dL (12.0-16.0); MEAN PLATELET VOLUME 8.0 fl (7.4-10.4); PLATELET 165 x1000/uL (130-400); RED BLOOD CELL COUNT 2.81 mill/uL (4.2-5.4); RED CELL DISTRIBUTION WIDTH 13.7 % (11.6-14.6)
[2025-01-26 19:30] LABS: CREATININE 2.8 mg/dL (0.6-1.0)
[2025-01-26 19:31] LABS: UREA NITROGEN BLOOD 63.0 mg/dL (9-23)
[2025-01-26 19:47] LABS: ERYTHROCYTE SEDIMENTATION RATE 121 mm/hr (0-30)
[2025-01-26] MEDS: HYDRALAZINE 20MG/ML VIAL IV NR (23:33)
[2025-01-26] MEDS: NITROGLYCERIN OINT 1GM/INCH UDPKT TD SCH (23:34)
[2025-01-27] VITALS (24 sets, daily range): BP systolic 120–198; BP diastolic 66–86; PULSE 82–112; RESP 16–27; TEMP 36.2–36.8; O2SAT 83–100
[2025-01-27 00:20] LABS: BAND% 2.0 % (1.0-6.0); LYMPHOCYTES % MANUAL 4.0 % (20.0-60.0); MONOCYTES % MANUAL 7.0 % (2.0-8.0); NEUTROPHILS % MANUAL 87.0 % (45.0-75.0)
[2025-01-27 00:21] LABS: PLATELET ESTIMATE NORMAL
[2025-01-27] MEDS: METHYLPREDNISOLONE SOD SUCC 125MG/2ML (ACT-O-VIAL) IV SCH (05:57)
[2025-01-27 06:17] LABS: CREATININE 2.6 mg/dL (0.6-1.0); UREA NITROGEN BLOOD 74 mg/dL (9-23)
[2025-01-27 06:39] LABS: HEMATOCRIT. 23.9 % (36.0-48.0); HEMOGLOBIN. 8.1 g/dL (12.0-16.0); MEAN PLATELET VOLUME 8.1 fl (7.4-10.4); PLATELET 151 x1000/uL (130-400); RED BLOOD CELL COUNT 2.68 mill/uL (4.2-5.4); RED CELL DISTRIBUTION WIDTH 13.8 % (11.6-14.6)
[2025-01-27 08:04] LABS: BG BASE EXCESS 1.2 mmol/L (-2.0-3.0); BG CARBOXYHEMOGLOBIN 0.4 % (0.5-1.5); BG DEOXYHEMOGLOBIN 1.8 % (0.0-5.0); BG FRACTION INSPIRED OXYGEN 40; BG HCO3 ACT 29.3 mmol/L (21.0-28.0); BG METHEMOGLOBIN 0.3 % (0.5-1.5); BG OXYGEN SATURATION 98.2 % (94.0-98.0); BG OXYHEMOGLOBIN 97.5 % (94.0-98.0); BG PCO2 69.1 mmHg (32.0-45.0); BG PH 7.245 (7.350-7.450); BG PO2 110.0 mmHg (83.0-108.0); BG SAMPLE SITE RIGHT RADIAL; BG TOTAL HEMOGLOBIN 8.9 g/dL (12.0-16.0); BG VENT MODE MASK - BIPAP; BG VENT RATE 20.0 set
[2025-01-27] MEDS: POTASSIUM CHLORIDE 20MEQ TABLET SR PO NR (08:56)
[2025-01-27] MEDS: PIPERACILLIN/TAZO 3.375G/50ML IV SCH (14:08)
[2025-01-27 15:07] LABS: BG BASE EXCESS -1.0 mmol/L (-2.0-3.0); BG CARBOXYHEMOGLOBIN 0.5 % (0.5-1.5); BG DEOXYHEMOGLOBIN 1.8 % (0.0-5.0); BG FRACTION INSPIRED OXYGEN 40; BG HCO3 ACT 27.6 mmol/L (21.0-28.0); BG METHEMOGLOBIN 0.3 % (0.5-1.5); BG OXYGEN SATURATION 98.2 % (94.0-98.0); BG OXYHEMOGLOBIN 97.4 % (94.0-98.0); BG PCO2 70.7 mmHg (32.0-45.0); BG PH 7.209 (7.350-7.450); BG PO2 113.7 mmHg (83.0-108.0); BG SAMPLE SITE RIGHT RADIAL; BG TOTAL HEMOGLOBIN 8.9 g/dL (12.0-16.0); BG VENT MODE MASK - BIPAP; BG VENT RATE 20.0 set
[2025-01-27 18:15] LABS: LYMPHOCYTES % MANUAL 3.0 % (20.0-60.0); MONOCYTES % MANUAL 10.0 % (2.0-8.0); MYELOCYTES % 1.0 % (0-0); NEUTROPHILS % MANUAL 86.0 % (45.0-75.0)
[2025-01-27 18:16] LABS: PLATELET ESTIMATE NORMAL
[2025-01-27] MEDS: DEXT 5%/0.45% NACL KCL 20MEQ/L 1,000 ML IV SCH (23:24)
[2025-01-28] VITALS (70 sets, daily range): BP systolic 72–147; BP diastolic 47–90; PULSE 82–124; RESP 0–26; TEMP 35.9–36.3; O2SAT 74–100
[2025-01-28] MEDS ORDERED: SODIUM CHLORIDE 0.9% 250 ML IV NR (07:15)
[2025-01-28 07:42] LABS: CREATININE 2.7 mg/dL (0.6-1.0); UREA NITROGEN BLOOD 88 mg/dL (9-23)
[2025-01-28 07:44] LABS: ASPARTATE AMINOTRANSFERASE 17 IU/L (<34); BILIRUBIN DIRECT 0.2 mg/dL (<=3.0); BILIRUBIN TOTAL 0.4 mg/dL (0.1-1.0); PROTEIN TOTAL 5.5 g/dL (6.0-8.3)
[2025-01-28 08:59] LABS: BG BASE EXCESS 0.1 mmol/L (-2.0-3.0); BG CARBOXYHEMOGLOBIN 0.4 % (0.5-1.5); BG DEOXYHEMOGLOBIN 1.0 % (0.0-5.0); BG FRACTION INSPIRED OXYGEN 40; BG HCO3 ACT 30.6 mmol/L (21.0-28.0); BG METHEMOGLOBIN 0.3 % (0.5-1.5); BG OXYGEN SATURATION 99.0 % (94.0-98.0); BG OXYHEMOGLOBIN 98.3 % (94.0-98.0); BG PCO2 90.0 mmHg (32.0-45.0); BG PH 7.149 (7.350-7.450); BG PO2 135.5 mmHg (83.0-108.0); BG SAMPLE SITE RIGHT RADIAL; BG TOTAL HEMOGLOBIN 10.5 g/dL (12.0-16.0); BG VENT MODE MASK - BIPAP; BG VENT RATE 20.0 set
[2025-01-28 13:11] LABS: COMPLEMENT C3 131 mg/dL (82-167); COMPLEMENT C4 38 mg/dL (12-38)
[2025-01-28 13:48] LABS: BG BASE EXCESS -0.6 mmol/L (-2.0-3.0); BG CARBOXYHEMOGLOBIN 0.3 % (0.5-1.5); BG DEOXYHEMOGLOBIN 0.2 % (0.0-5.0); BG FLOW(L/min) 40.00 L/min; BG FRACTION INSPIRED OXYGEN 80; BG HCO3 ACT 30.3 mmol/L (21.0-28.0); BG METHEMOGLOBIN 0.0 % (0.5-1.5); BG OXYGEN SATURATION 99.8 % (94.0-98.0); BG OXYHEMOGLOBIN 99.5 % (94.0-98.0); BG PCO2 100.2 mmHg (32.0-45.0); BG PH 7.098 (7.350-7.450); BG PO2 327.0 mmHg (83.0-108.0); BG SAMPLE SITE LEFT RADIAL; BG TOTAL HEMOGLOBIN 8.9 g/dL (12.0-16.0); BG VENT MODE HIGH FLOW
[2025-01-28] MEDS ORDERED: SODIUM CHLORIDE 0.9% 10ML VIAL ONE (14:18)
[2025-01-28] MEDS ORDERED: VECURONIUM BROMIDE 10 MG/VIAL IV ONE (14:18)
[2025-01-28] MEDS ORDERED: ETOMIDATE 2MG/ML 10ML VIAL IV ONE (14:18)
[2025-01-28] MEDS ORDERED: NOREPINEPHRINE 8 MG in DEXT 5% WATER 242 ML IV PRN (16:00)
[2025-01-28] MEDS: IPRATROPIUM/ALBUTEROL 0.5-3(2.5)MG/3ML NEB HHN PRN (17:28)
[2025-01-28] MEDS: MAGNESIUM 2 G PREMIX 50 ML IV SCH (17:32)
[2025-01-28 17:42] LABS: BG BASE EXCESS -2.0 mmol/L (-2.0-3.0); BG CARBOXYHEMOGLOBIN 0.4 % (0.5-1.5); BG DEOXYHEMOGLOBIN 22.9 % (0.0-5.0); BG FRACTION INSPIRED OXYGEN 60; BG HCO3 ACT 28.1 mmol/L (21.0-28.0); BG METHEMOGLOBIN 0.3 % (0.5-1.5); BG OXYGEN SATURATION 76.9 % (94.0-98.0); BG OXYHEMOGLOBIN 76.4 % (94.0-98.0); BG PCO2 86.0 mmHg (32.0-45.0); BG PEEP (cmH2O) 10.0 cmH2O; BG PH 7.132 (7.350-7.450); BG PIP 40.0 cmH2O; BG PO2 43.2 mmHg (83.0-108.0); BG SAMPLE SITE RIGHT RADIAL; BG TOTAL HEMOGLOBIN 9.2 g/dL (12.0-16.0); BG VENT MODE VENT - P/C; BG VENT RATE 26.0 set
[2025-01-28] MEDS: PROPOFOL 10MG/ML 100ML 100 ML IV PRN (19:30)
[2025-01-28] MEDS: NOREPINEPHRINE 8MG/250ML PMX 250ML IV PRN (22:35)
[2025-01-29] VITALS (95 sets, daily range): BP systolic 74–139; BP diastolic 44–84; PULSE 11–105; RESP 10–33; TEMP 35.4–36.6; O2SAT 88–100
[2025-01-29] MEDS: PHENYLEPHRINE 50MG/250ML PMX 250 ML IV PRN (00:10)
[2025-01-29 06:04] LABS: HEMATOCRIT. 26.2 % (36.0-48.0); HEMOGLOBIN. 8.2 g/dL (12.0-16.0); MEAN PLATELET VOLUME 8.5 fl (7.4-10.4); PLATELET 131 x1000/uL (130-400); RED BLOOD CELL COUNT 2.84 mill/uL (4.2-5.4); RED CELL DISTRIBUTION WIDTH 13.8 % (11.6-14.6)
[2025-01-29 06:33] LABS: CREATININE 3.4 mg/dL (0.6-1.0); TRIGLYCERIDE 137.0 mg/dL (0-150); UREA NITROGEN BLOOD 81.0 mg/dL (9-23)
[2025-01-29 10:02] LABS: BG BASE EXCESS -8.4 mmol/L (-2.0-3.0); BG CARBOXYHEMOGLOBIN 1.3 % (0.5-1.5); BG DEOXYHEMOGLOBIN 0.6 % (0.0-5.0); BG FRACTION INSPIRED OXYGEN 70; BG HCO3 ACT 24.0 mmol/L (21.0-28.0); BG METHEMOGLOBIN 0.2 % (0.5-1.5); BG OXYGEN SATURATION 99.4 % (94.0-98.0); BG OXYHEMOGLOBIN 97.9 % (94.0-98.0); BG PCO2 102.8 mmHg (32.0-45.0); BG PEEP (cmH2O) 10.0 cmH2O; BG PH 6.986 (7.350-7.450); BG PIP 40.0 cmH2O; BG PO2 182.2 mmHg (83.0-108.0); BG SAMPLE SITE RIGHT RADIAL; BG TOTAL HEMOGLOBIN 9.6 g/dL (12.0-16.0); BG VENT MODE VENT - P/C; BG VENT RATE 26.0 set
[2025-01-29 13:11] LABS: BG BASE EXCESS -6.9 mmol/L (-2.0-3.0); BG CARBOXYHEMOGLOBIN 1.0 % (0.5-1.5); BG DEOXYHEMOGLOBIN 5.3 % (0.0-5.0); BG FRACTION INSPIRED OXYGEN 40; BG HCO3 ACT 24.5 mmol/L (21.0-28.0); BG METHEMOGLOBIN 0.2 % (0.5-1.5); BG OXYGEN SATURATION 94.6 % (94.0-98.0); BG OXYHEMOGLOBIN 93.5 % (94.0-98.0); BG PCO2 93.8 mmHg (32.0-45.0); BG PEEP (cmH2O) 10.0 cmH2O; BG PH 7.035 (7.350-7.450); BG PO2 79.8 mmHg (83.0-108.0); BG SAMPLE SITE RIGHT RADIAL; BG TOTAL HEMOGLOBIN 9.2 g/dL (12.0-16.0); BG VENT MODE VENT - P/C; BG VENT RATE 40.0 set
[2025-01-29] MEDS: IPRATROPIUM/ALBUTEROL 0.5-3(2.5)MG/3ML NEB HHN SCH (14:25)
[2025-01-29 14:43] LABS: BAND% 38.0 % (1.0-6.0); LYMPHOCYTES % MANUAL 3.0 % (20.0-60.0); METAMYELOCYTES % 2.0 % (0-0); MONOCYTES % MANUAL 4.0 % (2.0-8.0); NEUTROPHILS % MANUAL 53.0 % (45.0-75.0); PLATELET ESTIMATE NORMAL
[2025-01-29] MEDS: DEXT 5%/0.45% NACL 1000ML 1,000 ML IV SCH (15:30)
[2025-01-29 16:32] LABS: BG BASE EXCESS -8.5 mmol/L (-2.0-3.0); BG CARBOXYHEMOGLOBIN 0.5 % (0.5-1.5); BG DEOXYHEMOGLOBIN 5.1 % (0.0-5.0); BG FRACTION INSPIRED OXYGEN 40; BG HCO3 ACT 22.2 mmol/L (21.0-28.0); BG METHEMOGLOBIN 0.0 % (0.5-1.5); BG OXYGEN SATURATION 94.9 % (94.0-98.0); BG OXYHEMOGLOBIN 94.4 % (94.0-98.0); BG PCO2 82.5 mmHg (32.0-45.0); BG PEEP (cmH2O) 10.0 cmH2O; BG PH 7.048 (7.350-7.450); BG PIP 40.0 cmH2O; BG PO2 82.7 mmHg (83.0-108.0); BG SAMPLE SITE RIGHT RADIAL; BG TOTAL HEMOGLOBIN 8.6 g/dL (12.0-16.0); BG VENT MODE VENT - P/C; BG VENT RATE 32.0 set
[2025-01-29 17:07] LABS: ACTIN (SMOOTH MUSCLE) ANTIBODY 34 Units (0-19)
[2025-01-29] MEDS ORDERED: TOBRAMYCIN SULFATE 40MG/ML 2ML IV SCH (22:00)
[2025-01-29] MEDS: PIPERACILLIN/TAZO 3.375G/50ML IV SCH (22:07)
[2025-01-29] MEDS: PROPOFOL 10MG/ML 100ML 100 ML IV PRN (22:56)
[2025-01-29] MEDS: METHYLPREDNISOLONE SOD SUCC 125MG/2ML (ACT-O-VIAL) IV SCH (23:13)
[2025-01-30] VITALS (97 sets, daily range): BP systolic 72–150; BP diastolic 45–101; PULSE 63–97; RESP 11–32; TEMP 36.5–37.00296; O2SAT 95–100
[2025-01-30] MEDS: TOBRAMYCIN SULFATE 40MG/ML 2ML INH SCH (00:16)
[2025-01-30 06:13] LABS: ANGIOTENSION CONVERTING ENZYME 32 U/L (14-82)
[2025-01-30 06:20] LABS: CREATININE 3.7 mg/dL (0.6-1.0); TRIGLYCERIDE 178.0 mg/dL (0-150); UREA NITROGEN BLOOD 82.0 mg/dL (9-23)
[2025-01-30 09:02] LABS: BG BASE EXCESS -8.8 mmol/L (-2.0-3.0); BG CARBOXYHEMOGLOBIN 1.9 % (0.5-1.5); BG DEOXYHEMOGLOBIN 8.0 % (0.0-5.0); BG FRACTION INSPIRED OXYGEN 40; BG HCO3 ACT 21.1 mmol/L (21.0-28.0); BG METHEMOGLOBIN 0.3 % (0.5-1.5); BG OXYGEN SATURATION 91.8 % (94.0-98.0); BG OXYHEMOGLOBIN 89.8 % (94.0-98.0); BG PCO2 74.7 mmHg (32.0-45.0); BG PEEP (cmH2O) 10.0 cmH2O; BG PH 7.069 (7.350-7.450); BG PO2 67.5 mmHg (83.0-108.0); BG SAMPLE SITE RIGHT RADIAL; BG TOTAL HEMOGLOBIN 7.6 g/dL (12.0-16.0); BG VENT MODE VENT - AC/PC; BG VENT RATE 32.0 set
[2025-01-30] MEDS: SODIUM BICARBONATE 8.4% 50MEQ/50ML SYR IV SCH (10:15)
[2025-01-30 11:19] LABS: HEMATOCRIT. 21.8 % (36.0-48.0); MEAN PLATELET VOLUME 9.6 fl (7.4-10.4); PLATELET 68 x1000/uL (130-400); RED BLOOD CELL COUNT 2.37 mill/uL (4.2-5.4); RED CELL DISTRIBUTION WIDTH 14.1 % (11.6-14.6)
[2025-01-30 12:20] LABS: HEMOGLOBIN. 6.9 g/dL (12.0-16.0)
[2025-01-30 15:10] LABS: ANTI-CENTROMERE B ANTIBODIES < 0.2 AI (0.0-0.9); ANTI-DNA DOUBLE STRANDED QUANT < 1 IU/mL (0-9); RNP ANTIBODY 0.7 AI (0.0-0.9); SMITH ANTIBODY < 0.2 AI (0.0-0.9)
[2025-01-30 15:58] LABS: BAND% 14.0 % (1.0-6.0); LYMPHOCYTES % MANUAL 2.0 % (20.0-60.0); MONOCYTES % MANUAL 4.0 % (2.0-8.0); NEUTROPHILS % MANUAL 80.0 % (45.0-75.0); PLATELET ESTIMATE DECREASED
[2025-01-30] MEDS: MONTELUKAST SODIUM 10MG TABLET PO SCH (17:00)
[2025-01-30 17:12] LABS: ANTI-MYELOPEROXIDASE AB > 8.0 units (0.0-0.9); ANTI-PROTEINASE 3 ABS < 0.2 units (0.0-0.9); ATYPICAL P-ANCA <1:20 titer (Neg:<1:20); CYTOPLASMIC C-ANCA <1:20 titer (Neg:<1:20); GLOMERULAR BASEMENT MEMB AB < 0 units (0.0-0.9); PERINUCLEAR P-ANCA <1:20 titer (Neg:<1:20)
[2025-01-30 17:12] LABS: GLOMERULAR BASEMENT MEMB AB < 0 units (0.0-0.9)
[2025-01-30] MEDS: SODIUM CHLORIDE 0.45% 1,000 ML IV SCH (18:14)
[2025-01-30 19:06] LABS: ANTI-CARDIOLIPIN AB IGG < 9 GPL U/mL (0-14); ANTI-CARDIOLIPIN AB IGM < 9 MPL U/mL (0-12)
[2025-01-30] MEDS: MIDAZOLAM 100MG/100ML PMX 100 ML IV PRN (21:23)
[2025-01-31] VITALS (113 sets, daily range): BP systolic 83–177; BP diastolic 7–108; PULSE 65–102; RESP 11–32; TEMP 36.4–36.9; O2SAT 90–100
[2025-01-31] MEDS: BLOOD SUGAR DIAGNOSTIC STRIP TEST SCH (00:40)
[2025-01-31] MEDS: INSULIN LISPRO 100 UNITS/ML SUBCUT SCH (00:50)
[2025-01-31 05:46] LABS: HEMATOCRIT. 28.8 % (36.0-48.0); HEMOGLOBIN. 9.4 g/dL (12.0-16.0); MEAN PLATELET VOLUME 9.7 fl (7.4-10.4); PLATELET 60 x1000/uL (130-400); RED BLOOD CELL COUNT 3.20 mill/uL (4.2-5.4); RED CELL DISTRIBUTION WIDTH 15.4 % (11.6-14.6)
[2025-01-31 05:58] LABS: INR 1.0
[2025-01-31 06:12] LABS: CREATININE 3.6 mg/dL (0.6-1.0)
[2025-01-31 06:13] LABS: UREA NITROGEN BLOOD 83.0 mg/dL (9-23)
[2025-01-31] MEDS ORDERED: LIDOCAINE HCL 1% 10 MG/ML 10ML VIAL ONE ×2 (07:17→09:59)
[2025-01-31 08:12] LABS: COMPLEMENT C3 81 mg/dL (82-167); COMPLEMENT C4 31 mg/dL (12-38)
[2025-01-31 08:56] LABS: BG BASE EXCESS -11.8 mmol/L (-2.0-3.0); BG CARBOXYHEMOGLOBIN 0.2 % (0.5-1.5); BG DEOXYHEMOGLOBIN 1.7 % (0.0-5.0); BG FRACTION INSPIRED OXYGEN 40; BG HCO3 ACT 18.2 mmol/L (21.0-28.0); BG METHEMOGLOBIN 0.3 % (0.5-1.5); BG OXYGEN SATURATION 98.3 % (94.0-98.0); BG OXYHEMOGLOBIN 97.8 % (94.0-98.0); BG PCO2 63.2 mmHg (32.0-45.0); BG PEEP (cmH2O) 10.0 cmH2O; BG PH 7.078 (7.350-7.450); BG PO2 127.5 mmHg (83.0-108.0); BG SAMPLE SITE RIGHT RADIAL; BG TOTAL HEMOGLOBIN 10.4 g/dL (12.0-16.0); BG VENT MODE VENT - AC/PC; BG VENT RATE 32.0 set
[2025-01-31 10:17] LABS: BAND% 19.0 % (1.0-6.0); LYMPHOCYTES % MANUAL 3.0 % (20.0-60.0); MONOCYTES % MANUAL 4.0 % (2.0-8.0); NEUTROPHILS % MANUAL 74.0 % (45.0-75.0); PLATELET ESTIMATE DECREASED
[2025-01-31] MEDS: NYSTATIN 100,000 UNITS/GM CREAM 15GM TOP SCH (11:00)
[2025-01-31] MEDS: METHYLPREDNISOLONE SOD SUCC 125MG/2ML (ACT-O-VIAL) IV SCH (23:32)
[2025-02-01] VITALS (133 sets, daily range): BP systolic 65–161; BP diastolic 36–105; PULSE 77–123; RESP 13–35; TEMP 35.4–37; O2SAT 92–100
[2025-02-01 04:11] LABS: ANA HOMOGENEOUS PATTERN 1:80 (.); ANA IFA Positive (.)
[2025-02-01 08:41] LABS: RED BLOOD CELL COUNT 3.22 mill/uL (4.2-5.4); RED CELL DISTRIBUTION WIDTH 15.2 % (11.6-14.6)
[2025-02-01 08:52] LABS: CREATININE 2.6 mg/dL (0.6-1.0); UREA NITROGEN BLOOD 58.0 mg/dL (9-23)
[2025-02-01] MEDS: PHENYLEPHRINE 50MG/250ML PMX 250 ML IV PRN (09:13)
[2025-02-01 10:38] LABS: PLATELET 32 x1000/uL (130-400)
[2025-02-01 11:23] LABS: BG BASE EXCESS -11.8 mmol/L (-2.0-3.0); BG CARBOXYHEMOGLOBIN 0.7 % (0.5-1.5); BG DEOXYHEMOGLOBIN 1.8 % (0.0-5.0); BG FRACTION INSPIRED OXYGEN 50; BG HCO3 ACT 21.0 mmol/L (21.0-28.0); BG METHEMOGLOBIN 0.1 % (0.5-1.5); BG OXYGEN SATURATION 98.2 % (94.0-98.0); BG OXYHEMOGLOBIN 97.4 % (94.0-98.0); BG PCO2 96.9 mmHg (32.0-45.0); BG PEEP (cmH2O) 5.0 cmH2O; BG PH 6.953 (7.350-7.450); BG PIP 10.0 cmH2O; BG PO2 128.7 mmHg (83.0-108.0); BG SAMPLE SITE RIGHT BRACHIAL; BG TOTAL HEMOGLOBIN 10.0 g/dL (12.0-16.0); BG TOTAL RESPIRATORY RATE 32 b/min; BG VENT MODE VENT - P/C; BG VENT RATE 32.0 set
[2025-02-01] MEDS: NOREPINEPHRINE 8MG/250ML PMX 250 ML IV PRN (14:02)
[2025-02-01 14:37] LABS: BG BASE EXCESS -13.1 mmol/L (-2.0-3.0); BG CARBOXYHEMOGLOBIN 0.2 % (0.5-1.5); BG DEOXYHEMOGLOBIN 2.1 % (0.0-5.0); BG FRACTION INSPIRED OXYGEN 40; BG HCO3 ACT 19.0 mmol/L (21.0-28.0); BG METHEMOGLOBIN 0.3 % (0.5-1.5); BG OXYGEN SATURATION 97.9 % (94.0-98.0); BG OXYHEMOGLOBIN 97.4 % (94.0-98.0); BG PCO2 83.2 mmHg (32.0-45.0); BG PEEP (cmH2O) 5.0 cmH2O; BG PH 6.976 (7.350-7.450); BG PO2 120.5 mmHg (83.0-108.0); BG SAMPLE SITE RIGHT BRACHIAL; BG TIDAL VOLUME(mL) 400.0 mL; BG TOTAL HEMOGLOBIN 10.3 g/dL (12.0-16.0); BG TOTAL RESPIRATORY RATE 28 b/min; BG VENT MODE VENT-PRVC; BG VENT RATE 28.0 set
[2025-02-01] MEDS: LEVOFLOXACIN 750MG PREMIX 150 ML IV SCH (15:30)
[2025-02-01] MEDS: SODIUM BICARBONATE 8.4% 50MEQ/50ML SYR IV SCH (16:24)
[2025-02-01] MEDS: FUROSEMIDE 20MG/2ML VIAL IVP SCH (20:54)
[2025-02-01] MEDS: KCL 10MEQ/50ML PREMIX 50 ML IV NR (20:55)
[2025-02-01 23:30] LABS: BG BASE EXCESS -14.8 mmol/L (-2.0-3.0); BG CARBOXYHEMOGLOBIN 0.8 % (0.5-1.5); BG DEOXYHEMOGLOBIN 0.8 % (0.0-5.0); BG FRACTION INSPIRED OXYGEN 50; BG HCO3 ACT 17.8 mmol/L (21.0-28.0); BG METHEMOGLOBIN 0.5 % (0.5-1.5); BG OXYGEN SATURATION 99.2 % (94.0-98.0); BG OXYHEMOGLOBIN 97.9 % (94.0-98.0); BG PCO2 86.8 mmHg (32.0-45.0); BG PEEP (cmH2O) 5.0 cmH2O; BG PH 6.930 (7.350-7.450); BG PO2 195.1 mmHg (83.0-108.0); BG SAMPLE SITE RIGHT BRACHIAL; BG TOTAL HEMOGLOBIN 9.6 g/dL (12.0-16.0); BG VENT MODE VENT - P/C; BG VENT RATE 30.0 set
[2025-02-02] VITALS (94 sets, daily range): BP systolic 56–223; BP diastolic 18–111; PULSE 66–151; RESP 0–37; TEMP 36.3–36.9474; O2SAT 77–100
[2025-02-02] MEDS: DEXTROSE 50% WATER 50ML SYRINGE IV PRN (00:01)
[2025-02-02] MEDS: PHENYLEPHRINE 100 MG in DEXT 5% WATER 240 ML IV PRN (00:08)
[2025-02-02] MEDS: NOREPINEPHRINE 32 MG in DEXT 5% WATER 218 ML IV PRN (00:08)
[2025-02-02] MEDS: SODIUM BICARBONATE 8.4% 50MEQ/50ML SYR IV SCH (01:49)
[2025-02-02] MEDS: PROPOFOL 10MG/ML 100ML 100 ML IV PRN (01:50)
[2025-02-02 03:36] LABS: BG BASE EXCESS -13.0 mmol/L (-2.0-3.0); BG CARBOXYHEMOGLOBIN 1.2 % (0.5-1.5); BG DEOXYHEMOGLOBIN 5.1 % (0.0-5.0); BG FRACTION INSPIRED OXYGEN 60; BG HCO3 ACT 19.6 mmol/L (21.0-28.0); BG METHEMOGLOBIN 0.4 % (0.5-1.5); BG OXYGEN SATURATION 94.8 % (94.0-98.0); BG OXYHEMOGLOBIN 93.3 % (94.0-98.0); BG PCO2 91.1 mmHg (32.0-45.0); BG PEEP (cmH2O) 5.0 cmH2O; BG PH 6.950 (7.350-7.450); BG PO2 87.1 mmHg (83.0-108.0); BG SAMPLE SITE RIGHT BRACHIAL; BG TOTAL HEMOGLOBIN 10.1 g/dL (12.0-16.0); BG VENT MODE VENT - P/C; BG VENT RATE 34.0 set
[2025-02-02] MEDS: EPINEPHRINE 10 MG in SODIUM CHLORIDE 0.9% 240 ML IV PRN (05:51)
[2025-02-02 06:21] LABS: TRIGLYCERIDE 206 mg/dL (0-150)
[2025-02-02 06:50] LABS: TROPONIN I HIGH SENSITIVITY 8948 ng/L (3.0-34)
[2025-02-02] MEDS: FENTANYL 2500MCG/250ML PMX 250 ML IV PRN (08:18)
[2025-02-02] MEDS: VASOPRESSIN 20 UNIT in SODIUM CHLORIDE 0.9% 99 ML IV PRN (08:18)
[2025-02-02 09:38] LABS: HEMATOCRIT. 29.7 % (36.0-48.0); HEMOGLOBIN. 9.4 g/dL (12.0-16.0); MEAN PLATELET VOLUME 9.4 fl (7.4-10.4); RED BLOOD CELL COUNT 3.24 mill/uL (4.2-5.4); RED CELL DISTRIBUTION WIDTH 15.6 % (11.6-14.6)
[2025-02-02] MEDS: MIDAZOLAM 100MG/100ML PMX 100 ML IV PRN (09:40)
[2025-02-02 09:45] LABS: CREATININE 3.0 mg/dL (0.6-1.0); UREA NITROGEN BLOOD 60.0 mg/dL (9-23)
[2025-02-02 10:04] LABS: PLATELET 12 x1000/uL (130-400)
[2025-02-02 10:41] LABS: BAND% 33.0 % (1.0-6.0); LYMPHOCYTES % MANUAL 3.0 % (20.0-60.0); METAMYELOCYTES % 2.0 % (0-0); MONOCYTES % MANUAL 3.0 % (2.0-8.0); MYELOCYTES % 5.0 % (0-0); NEUTROPHILS % MANUAL 54.0 % (45.0-75.0); NUCLEATED RED BLOOD CELLS 17 /100 WBC; PLATELET ESTIMATE MARKEDLY DECREASED
[2025-02-02 10:44] LABS: BG BASE EXCESS -21.2 mmol/L (-2.0-3.0); BG CARBOXYHEMOGLOBIN 0.2 % (0.5-1.5); BG DEOXYHEMOGLOBIN 1.1 % (0.0-5.0); BG FRACTION INSPIRED OXYGEN 80; BG HCO3 ACT 11.4 mmol/L (21.0-28.0); BG METHEMOGLOBIN 0.0 % (0.5-1.5); BG OXYGEN SATURATION 98.9 % (94.0-98.0); BG OXYHEMOGLOBIN 98.7 % (94.0-98.0); BG PCO2 60.3 mmHg (32.0-45.0); BG PEEP (cmH2O) 5.0 cmH2O; BG PH 6.895 (7.350-7.450); BG PO2 185.9 mmHg (83.0-108.0); BG SAMPLE SITE LEFT RADIAL; BG TIDAL VOLUME(mL) 350.0 mL; BG TOTAL HEMOGLOBIN 10.4 g/dL (12.0-16.0); BG TOTAL RESPIRATORY RATE 34 b/min; BG VENT MODE VENT-PRVC; BG VENT RATE 34.0 set
[2025-02-02] MEDS: SODIUM BICARBONATE 8.4% 50MEQ/50ML SYR IV NR (11:33)
[2025-02-02 13:34] LABS: BG BASE EXCESS -15.6 mmol/L (-2.0-3.0); BG CARBOXYHEMOGLOBIN 0.5 % (0.5-1.5); BG DEOXYHEMOGLOBIN 1.0 % (0.0-5.0); BG FRACTION INSPIRED OXYGEN 80; BG HCO3 ACT 15.4 mmol/L (21.0-28.0); BG METHEMOGLOBIN 0.3 % (0.5-1.5); BG OXYGEN SATURATION 99.0 % (94.0-98.0); BG OXYHEMOGLOBIN 98.2 % (94.0-98.0); BG PCO2 66.0 mmHg (32.0-45.0); BG PEEP (cmH2O) 5.0 cmH2O; BG PH 6.985 (7.350-7.450); BG PO2 201.3 mmHg (83.0-108.0); BG SAMPLE SITE LEFT RADIAL; BG TIDAL VOLUME(mL) 350.0 mL; BG TOTAL HEMOGLOBIN 8.6 g/dL (12.0-16.0); BG TOTAL RESPIRATORY RATE 34 b/min; BG VENT MODE VENT PRVC; BG VENT RATE 34.0 set
[2025-02-02] MEDS: SODIUM BICARBONATE 150 MEQ in SODIUM CHLORIDE 0.45% 850 ML IV SCH (14:41)
[2025-02-02] MEDS: METOCLOPRAMIDE HCL 10MG/2ML VIAL IV SCH (18:47)
[2025-02-02] MEDS: ALBUMIN HUMAN 25GM/100ML (25%) IV NR (20:18)
[2025-02-02] MEDS: EPINEPHRINE 20 MG in SODIUM CHLORIDE 0.9% 480 ML IV PRN (20:20)
[2025-02-02] MEDS ORDERED: FENTANYL 2500MCG/250ML PMX 250 ML IV PRN (21:45)
[2025-02-02] MEDS: VECURONIUM BROMIDE 50 MG in DEXTROSE 5% WATER 50 ML IV PRN (22:28)
[2025-02-02] MEDS ORDERED: GLUCAGON,HUMAN RECOMBINANT 1MG/VIAL ONE (23:37)
[2025-02-03] MEDS ORDERED: METHYLPREDNISOLONE SOD SUCC 125MG/2ML (ACT-O-VIAL) IV SCH
[2025-02-03] MEDS ORDERED: DOPAMINE 400MG/250ML PREMIX 250 ML IV PRN
[2025-02-03] MEDS ORDERED: DOPAMINE 800MG PREMIX (DOUBLE) 250 ML IV ONE (00:03)
[2025-02-03] MEDS ORDERED: DOPAMINE 800MG PREMIX (DOUBLE) 250 ML IV PRN (00:15)
[2025-02-03] MEDS ORDERED: SODIUM BICARBONATE 8.4% 50MEQ/50ML SYR IV ONE (00:16)
[2025-02-03] MEDS ORDERED: LEVOFLOXACIN 500MG PREMIX 100 ML IV SCH (11:00)
== END 2025-02-03 04:30 | DRG 710 ==
LOC: 7WST 23:30 → CVICU 01-18 00:01 → 8WST 01-21 04:38 → 5EST 01-23 09:52 → MICUNO 01-28 15:00 → MICUSO 01-29 06:09 → MICUNO 01-29 13:40 → 5EST 02-01 08:20
PROVIDERS: ADMIT Internal Medicine Nephrology; ATTEND Internal Medicine
PROC: 5A1D70Z Performance of Urinary Filtration, Intermittent, Less than 6 Hours Per Day (ICD-10-PCS; 2025-01-06)
PROC: 4B02XTZ Measurement of Cardiac Defibrillator, External Approach (ICD-10-PCS; 2025-01-07)
PROC: 30233N1 Transfusion of Nonautologous Red Blood Cells into Peripheral Vein, Percutaneous Approach (ICD-10-PCS; 2025-01-08)
PROC: 5A1D70Z Performance of Urinary Filtration, Intermittent, Less than 6 Hours Per Day (ICD-10-PCS; 2025-01-08)
PROC: 5A1D70Z Performance of Urinary Filtration, Intermittent, Less than 6 Hours Per Day (ICD-10-PCS; 2025-01-10)
PROC: 0TC68ZZ Extirpation of Matter from Right Ureter, Via Natural or Artificial Opening Endoscopic (ICD-10-PCS; 2025-01-12)
PROC: 0T768DZ Dilation of Right Ureter with Intraluminal Device, Via Natural or Artificial Opening Endoscopic (ICD-10-PCS; 2025-01-12)
PROC: 5A1D70Z Performance of Urinary Filtration, Intermittent, Less than 6 Hours Per Day (ICD-10-PCS; 2025-01-12)
PROC: 0DB58ZX Excision of Esophagus, Via Natural or Artificial Opening Endoscopic, Diagnostic (ICD-10-PCS; 2025-01-17)
PROC: 0DB78ZX Excision of Stomach, Pylorus, Via Natural or Artificial Opening Endoscopic, Diagnostic (ICD-10-PCS; 2025-01-17)
PROC: 5A1945Z Respiratory Ventilation, 24-96 Consecutive Hours (ICD-10-PCS; 2025-01-17)
PROC: 0BH17EZ Insertion of Endotracheal Airway into Trachea, Via Natural or Artificial Opening (ICD-10-PCS; 2025-01-17)
PROC: 5A12012 Performance of Cardiac Output, Single, Manual (ICD-10-PCS; 2025-01-18)
PROC: BT111ZZ Fluoroscopy of Right Kidney using Low Osmolar Contrast (ICD-10-PCS; 2025-01-18)
PROC: 4A00X4Z Measurement of Central Nervous Electrical Activity, External Approach (ICD-10-PCS; 2025-01-23)
PROC: 5A09457 Assistance with Respiratory Ventilation, 24-96 Consecutive Hours, Continuous Positive Airway Pressure (ICD-10-PCS; 2025-01-23)
PROC: 5A09357 Assistance with Respiratory Ventilation, Less than 24 Consecutive Hours, Continuous Positive Airway Pressure (ICD-10-PCS; 2025-01-25)
PROC: 5A09457 Assistance with Respiratory Ventilation, 24-96 Consecutive Hours, Continuous Positive Airway Pressure (ICD-10-PCS; 2025-01-26)
PROC: 0BCF8ZZ Extirpation of Matter from Right Lower Lung Lobe, Via Natural or Artificial Opening Endoscopic (ICD-10-PCS; principal; 2025-01-28)
PROC: 0BC28ZZ Extirpation of Matter from Carina, Via Natural or Artificial Opening Endoscopic (ICD-10-PCS; 2025-01-28)
PROC: 0BC58ZZ Extirpation of Matter from Right Middle Lobe Bronchus, Via Natural or Artificial Opening Endoscopic (ICD-10-PCS; 2025-01-28)
PROC: 0B9J8ZZ Drainage of Left Lower Lung Lobe, Via Natural or Artificial Opening Endoscopic (ICD-10-PCS; 2025-01-28)
PROC: 0B9G8ZZ Drainage of Left Upper Lung Lobe, Via Natural or Artificial Opening Endoscopic (ICD-10-PCS; 2025-01-28)
PROC: 0B9M8ZX Drainage of Bilateral Lungs, Via Natural or Artificial Opening Endoscopic, Diagnostic (ICD-10-PCS; 2025-01-28)
PROC: 02HV33Z Insertion of Infusion Device into Superior Vena Cava, Percutaneous Approach (ICD-10-PCS; 2025-01-28)
PROC: B548ZZA Ultrasonography of Superior Vena Cava, Guidance (ICD-10-PCS; 2025-01-28)
PROC: 5A0935A Assistance with Respiratory Ventilation, Less than 24 Consecutive Hours, High Flow/Velocity Cannula (ICD-10-PCS; 2025-01-28)
PROC: 5A1955Z Respiratory Ventilation, Greater than 96 Consecutive Hours (ICD-10-PCS; 2025-01-28)
PROC: 0BH17EZ Insertion of Endotracheal Airway into Trachea, Via Natural or Artificial Opening (ICD-10-PCS; 2025-01-28)
PROC: 06HY33Z Insertion of Infusion Device into Lower Vein, Percutaneous Approach (ICD-10-PCS; 2025-01-31)
PROC: B54BZZA Ultrasonography of Right Lower Extremity Veins, Guidance (ICD-10-PCS; 2025-01-31)
PROC: 5A1D70Z Performance of Urinary Filtration, Intermittent, Less than 6 Hours Per Day (ICD-10-PCS; 2025-01-31)
PROC: 5A12012 Performance of Cardiac Output, Single, Manual (ICD-10-PCS; 2025-02-02)
PROC: 30233R1 Transfusion of Nonautologous Platelets into Peripheral Vein, Percutaneous Approach (ICD-10-PCS; 2025-02-02)
PROC: 5A1D70Z Performance of Urinary Filtration, Intermittent, Less than 6 Hours Per Day (ICD-10-PCS; 2025-02-02)
PROC: 5A12012 Performance of Cardiac Output, Single, Manual (ICD-10-PCS; 2025-02-03)
DX: A41.51 Sepsis due to Escherichia coli [E. coli] (principal); J15.1 Pneumonia due to Pseudomonas; J80 Acute respiratory distress syndrome; R65.21 Severe sepsis with septic shock; J69.0 Pneumonitis due to inhalation of food and vomit; N17.0 Acute kidney failure with tubular necrosis; G92.8 Other toxic encephalopathy; K22.11 Ulcer of esophagus with bleeding; I46.9 Cardiac arrest, cause unspecified; I42.9 Cardiomyopathy, unspecified; N13.2 Hydronephrosis with renal and ureteral calculous obstruction; D69.6 Thrombocytopenia, unspecified; E11.22 Type 2 diabetes mellitus with diabetic chronic kidney disease; E66.9 Obesity, unspecified; E61.1 Iron deficiency; B96.20 Unspecified Escherichia coli [E. coli] as the cause of diseases classified elsewhere; N13.8 Other obstructive and reflux uropathy; N18.6 End stage renal disease; E11.52 Type 2 diabetes mellitus with diabetic peripheral angiopathy with gangrene; E11.65 Type 2 diabetes mellitus with hyperglycemia; K29.61 Other gastritis with bleeding; R56.9 Unspecified convulsions; E87.6 Hypokalemia; E87.0 Hyperosmolality and hypernatremia; E87.3 Alkalosis; T50.2X5A Adverse effect of carbonic-anhydrase inhibitors, benzothiadiazides and other diuretics, initial encounter; E87.4 Mixed disorder of acid-base balance; I13.2 Hypertensive heart and chronic kidney disease with heart failure and with stage 5 chronic kidney disease, or end stage renal disease; D63.8 Anemia in other chronic diseases classified elsewhere; G47.00 Insomnia, unspecified; M31.30 Wegener's granulomatosis without renal involvement; E87.5 Hyperkalemia; J44.1 Chronic obstructive pulmonary disease with (acute) exacerbation; N27.0 Small kidney, unilateral; R47.01 Aphasia; F41.9 Anxiety disorder, unspecified; B37.9 Candidiasis, unspecified; I50.9 Heart failure, unspecified; E78.5 Hyperlipidemia, unspecified; J45.909 Unspecified asthma, uncomplicated; Z16.11 Resistance to penicillins; Z53.9 Procedure and treatment not carried out, unspecified reason; Z99.2 Dependence on renal dialysis; Z87.19 Personal history of other diseases of the digestive system; Z87.442 Personal history of urinary calculi; Z93.6 Other artificial openings of urinary tract status; Z68.28 Body mass index [BMI] 28.0-28.9, adult; Z78.9 Other specified health status; Z79.4 Long term (current) use of insulin; Z79.84 Long term (current) use of oral hypoglycemic drugs; Z79.899 Other long term (current) drug therapy; Z86.11 Personal history of tuberculosis; Z95.810 Presence of automatic (implantable) cardiac defibrillator; Y92.89 Other specified places as the place of occurrence of the external cause
CPT/HCPCS: 31500; 31720; 36415; 36558; 36600; 71045; 71250; 73620; 74018; 74425; 76770; 77001; 80048; 80053; 80061; 80076; 80202; 81003; 82164; 82270; 82360; 82375; 82550; 82553; 82595; 82607; 82746; 82805; 82962; 83036; 83516; 83520; 83540; 83550; 83605; 83735; 83880; 84100; 84145; 84439; 84443; 84478; 84484; 85014; 85018; 85025; 85027; 85044; 85379; 85384; 85651; 86038; 86147; 86160; 86225; 86235; 86256; 86332; 86430; 86431; 86635; 86705; 86709; 86850; 86880; 86900; 86920; 87070; 87077; 87116; 87149; 87153; 87186; 87340; 87556; 88300; 88305; 88312; 88313; 90935; 92950; 93005; 93306; 93923; 93970; 94002; 94003; 94070; 94640; 94660; 94664; 95816; 97162; 97530; 98960; A4606; A6261; C1752; C1769; J0360; J1100; J1265; J1308; J1610; J1650; J1815; J1938; J1953; J1956; J2003; J2185; J2248; J2250; J2371; J2405; J2470; J2543; J2704; J2765; J2919; J3010; J3260; J3373; J3475; J3480; J3490; J7040; J7042; J7050; J7060; J7070; J7608; J7626; P9016; P9034; P9047; Q9967; C1889; C2617